=== PATIENT | female | born 1960 | race Caucasian/White ===

== ENCOUNTER 2019-08-11 02:52 | Emergency (ER) | payer MEDICARE, SELFPAY ==
[2019-08-11 02:48] VITALS: BP 107/63; PULSE 83; RESP 18; TEMP 36.6; O2SAT 100
--- NOTE | 2019-08-11 03:36 | ED.BACK ---
HPI - Back Pain/Injury General Chief Complaint: Back Pain/Injury Stated Complaint: back pain, h/a Time Seen by Provider: 08/11/19 03:17 History of Present Illness HPI Narrative: Patient presents via [facility] [place] [facility] [place]. She lives in [place] which is 5 miles away. She said she walked here from [place]. She says she walks a lot because she does not have a car. She has been homeless, but recently she has an apartment. 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 She has not had spine surgery. She rates her low back pain as 8 out of 10. She also has a migraine headache. It is bilateral and temporal. She rates it an 8 out of 10. She has blurry vision photophobia nausea.. She says she has a history of migraine headaches. This 1 started 3 hours ago. MD elicited complaint: back pain Pertinent past history: prior back pain Timing: constant Severity: moderate Related Data Allergies Allergy/AdvReac Type Severity Reaction Status Date / Time prednisone AdvReac Palpitation Verified 08/11/19 02:52 s Review of Systems Review of Systems: Narrative: CONSTITUTIONAL: Denies fever, chills, or sweats. EYES: Denies visual changes, redness, or discharge. ENT: Denies rhinorrhea, congestion, sore throat, or otalgia. CARDIOVASCULAR: Denies chest pain, palpitations, or edema. RESPIRATORY: Denies cough or dyspnea. GASTROINTESTINAL: Denies abdominal pain, nausea, vomiting, or diarrhea. GENITOURINARY: Denies dysuria or hematuria. SKIN: Denies rash or itching. MUSCULOSKELETAL: Denies joint pain, or myalgia. NEUROLOGIC: Denies numbness, or weakness. PSYCHIATRIC: Denies anxiety or depression. PMFSH Past Medical History Medical History Lumbar pain Migraine headache Smoking Surgical History Surgical History (Updated 08/11/19 @ 03:38 by Adelia Maria MD) History of hysterectomy Social History Social History (Updated 08/11/19 @ 03:38 by Adelia Maria MD) Smoking status: Current every day smoker Alcohol intake: current Substance use: never Gender identity (if verbalized by the patient): Female Exam Narrative: Exam Narrative: GENERAL: Well-appearing, well-nourished, and in no acute distress. Hair is oily, and unkempt. HEAD: Normocephalic, atraumatic. EYES: PERRLA and EOMI. ENT: Nares clear, no rhinorrhea or epistaxis. Mucous membranes moist. NECK: Supple. CHEST: Clear to auscultation. No respiratory distress. HEART: Regular rate and rhythm. No murmur heard. Normal peripheral pulses. ABDOMEN: Soft, nontender, nondistended, normal active bowel sounds. EXTREMITIES: No edema. SKIN: Warm, dry, no rash. NEURO: No focal deficits. Alert and oriented x3. PSYCH: Normal mood and affect. Course Reevaluation(s) Reevaluation #1: Went in to check on the patient. She was sleeping. I woke her up and asked her how she felt. She said not any better let me sit a little bit longer. Date: 08/11/19 Time: 05:16 Vital Signs Vital signs: Vital Signs Temperature 97.8 F 08/11/19 02:48 Pulse Rate 83 08/11/19 02:48 Respiratory Rate 18 08/11/19 02:48 Blood Pressure 107/63 08/11/19 02:48 Pulse Oximetry 100 08/11/19 02:48 Temperature 97.8 F 08/11/19 06:28 Pulse Rate 83 08/11/19 02:48 Respiratory Rate 18 08/11/19 02:48 Blood Pressure 107/63 08/11/19 02:48 Pulse Oximetry 100 08/11/19 02:48 MDM - Back Pain/Injury Medical Records Attestation: I reviewed the patient's medical records. Discharge Plan Discharge Clinical Impression: Chronic back pain Qualifiers: Back pain location: low back pain Back pain laterality: unspecified Sciatica presence: without sciatica Qualified Code(s): M54.5 - Low back pain Headache, migraine Qualifiers: Migraine type: unspecified Status migrainosus presence: without status migrainosus Intractability: not intractable Qualified Code(s): G43.909 - Migraine, unspecified, not intractable, without status migrainos
[2019-08-11] MEDS: KETOROLAC 15 MG/ML VIAL (*BKC) IV PUSH (03:52)
[2019-08-11] MEDS: SODIUM CHLORIDE 0.9% IV 1,000 ML 999 ML IV CONT (03:53)
[2019-08-11] MEDS: METOCLOPRAMIDE HCL INJ 10 MG/2 ML VIAL IV PUSH (03:53)
[2019-08-11 04:02] VITALS: BP 137/65; PULSE 67; RESP 16; O2SAT 99
[2019-08-11 06:28] VITALS: TEMP 36.6
[2019-08-11 06:43] VITALS: BP 121/58; PULSE 73; RESP 12; TEMP 36.4; O2SAT 97
== END 2019-08-11 06:45 | disposition home or self-care (01) ==
PROVIDERS: Emergency Provider Emergency Medicine
DX: M54.5 Low back pain (principal); G43.909 Migraine, unspecified, not intractable, without status migrainosus; F17.200 Nicotine dependence, unspecified, uncomplicated
CPT/HCPCS: 96361; 96374; 96375; 99284; J1200; J1885; J2765; J7030

== ENCOUNTER 2020-05-22 14:03 | Emergency (ER) | payer MEDICARE, SELFPAY ==
--- NOTE | 2020-05-22 14:13 | ED.SKABFB ---
HPI - Skin/Abscess/Foreign Bdy General Chief complaint: Skin/Abscess/Foreign Body Stated complaint: boil Time Seen by Provider: 05/22/20 14:25 Source: patient and RN notes reviewed Mode of arrival: ambulatory Limitations: no limitations History of Present Illness HPI narrative: 59-year-old female presents concern for abscess on her left was at left buttock. Reports she and her boyfriend drained the area with a sterilized needle, and pus came out. Reports pain has improved since then, however she still has a scab with redness. Reports her boyfriend had MRSA in the past, she has no history herself of boils, abscesses, MRSA. She denies any similar instances in the past. She denies fever, malaise, chills, sweats. Denies any current drainage from the area. MD complaint: abscess/boil Related Data Home Medications Medication Instructions Recorded Confirmed alprazolam 05/22/20 citalopram mg 05/22/20 dextroamphetamine-amphetamine 05/22/20 mirtazapine mg 05/22/20 Allergies Allergy/AdvReac Type Severity Reaction Status Date / Time prednisone AdvReac Palpitation Verified 08/11/19 02:52 s Review of Systems Review of Systems: Narrative: CONSTITUTIONAL: Denies malaise, chills, sweats, or fever. CARDIOVASCULAR: Denies chest pain, palpitations, or edema. RESPIRATORY: Denies cough or dyspnea. SKIN: Reports a boil in her left buttock MUSCULOSKELETAL: Denies myalgia. All systems reviewed & are unremarkable except as noted in HPI and below PMFSH Past Medical History Medical History Lumbar pain Migraine headache Smoking Surgical History Surgical History (Updated 08/11/19 @ 03:38 by Adelia Maria MD) History of hysterectomy Social History Social History (Updated 08/11/19 @ 03:38 by Adelia Maria MD) Smoking status: Current every day smoker Alcohol intake: current Substance use: never Gender identity (if verbalized by the patient): Female Comments At time of signature, agree with nursing past medical, surgical, social and family history. There is no relevant family history pertinent to the presenting complaint Exam Narrative: Exam Narrative: GENERAL: Well-appearing, well-nourished, and in no acute distress. HEAD: Normocephalic, atraumatic. EYES: PERRLA, conjunctivae clear, and EOMI. ENT: Mucous membranes moist. NECK: Supple. No lymphadenopathy CHEST: Clear to auscultation. No respiratory distress. HEART: Regular rate and rhythm. SKIN: Warm, dry. 2 cm area of erythema with central scab, not fluctuant, no induration, consistent with resolving abscess NEURO: Alert and oriented x3. PSYCH: Normal mood and affect Course Course Emergency Course: Patient is aware of diagnosis, understands and agrees to treatment plan. Anticipatory guidance given. Patient agrees to follow-up as directed and is aware of reasons to seek care at the emergency department. Portions of this record may have been created with voice recognition software Vital Signs Vital signs: Reviewed. MDM - Skin/Abscess/Foreign Bdy MDM Narrative Medical decision making narrative: Exam findings show no acute concerns or changes; patient is non-toxic appearing and is in no distress. Patient is appropriate for outpatient treatment and follow-up. Differential Diagnosis Differential diagnosis: Likely abscess of skin or subcutaneous tissue, urticaria, cellulitis and contact dermatitis Critical Care Time Critical Care Time Critical Care Time: No Discharge Plan Discharge Clinical Impression: Abscess Patient Disposition: Home, Self-Care Condition: Stable Instructions: Antibiotic Form, Abscess (ED) Additional Instructions: Apply warm moist heat to the area, continue to monitor. If redness does not improve within 24 hours or he worsens within 24 hours please fill the antibiotic and take as directed Please follow up with your Primary Care Doctor If your symptoms are worsening or not improving despite antibiotics. Take Mot
[2020-05-22 14:30] VITALS: BP 127/78; PULSE 100; RESP 16; TEMP 36; O2SAT 100
== END 2020-05-22 14:51 | disposition home or self-care (01) ==
PROVIDERS: Emergency Provider Nurse Practitioner
DX: L02.31 Cutaneous abscess of buttock (principal); F17.200 Nicotine dependence, unspecified, uncomplicated; Z90.711 Acquired absence of uterus with remaining cervical stump; F41.9 Anxiety disorder, unspecified; F90.9 Attention-deficit hyperactivity disorder, unspecified type
CPT/HCPCS: 99213; G0463

== ENCOUNTER 2020-11-16 13:32 | Emergency (ER) | payer MEDICARE, SELFPAY ==
[2020-11-16 13:45] VITALS: BP 104/65; PULSE 83; RESP 18; TEMP 36.3; O2SAT 100
--- NOTE | 2020-11-16 14:12 | ED.LOWEXIN ---
HPI - Extremity Injury (Lower) General Chief Complaint: Extremity Injury, Lower Stated Complaint: painful left leg History of Present Illness HPI Narrative: This is a 61-year-old female who presented to urgent care with complaints of pain to her left lower extremity. Patient denies any trauma to the legs she describes her pain as intermittent pain with occasional numbness that starts at the thigh and migrates to her lower feet. She notes that sometimes it feels as if she is getting a charley horse . She notes that she took Vicodin's with no relief last night. She notes that her pain wakes her up out of her sleep. She notes that the pain has occurred for approximately 1 month. Patient notes that occasionally it feels as if her knee is about to give him. She notes that she is experiencing pain at rest and while ambulating. Patient was reading the Internet and was concerned about a DVT she also notes that she has elevated her leg apply ice to the area with no relief. The patient denies SOB, CP, palpitation, extremity numbness, lightheadedness, dizziness, constipation, diarrhea, chills, no neurovascular deficiencies, pedal pulses present, Homans' sign is negative, capillary refill within normal limits, or fever. Related Data Home Medications Medication Instructions Recorded Confirmed alprazolam 05/22/20 citalopram mg 05/22/20 dextroamphetamine-amphetamine 05/22/20 mirtazapine mg 05/22/20 Allergies Allergy/AdvReac Type Severity Reaction Status Date / Time prednisone AdvReac Palpitation Verified 11/16/20 13:50 s Review of Systems Review of Systems: A 14 organ system Review of Systems was performed and pertinent positives included in the HPI, otherwise remaining ROS is negative. PMFSH Past Medical History Medical History Lumbar pain Migraine headache Smoking Surgical History Surgical History History of hysterectomy Social History Social History Smoking status: Current every day smoker Alcohol intake: current Substance use: never Gender identity (if verbalized by the patient): Female Exam Narrative: GENERAL: This is a well-nourished, well-developed patient, in no apparent distress. HEAD: normocephalic, atraumatic. EYES: PERRL. Sclera clear/white. Vision is grossly intact. EARS: External ears normal, auditory canals clear and without drainage, TMs normal without perforation. Hearing grossly intact. NOSE: External nose normal with no obvious nasal discharge, nares without redness, no rhinorrhea. THROAT: Mucous membranes moist, posterior pharynx clear. NECK: Neck supple, non-tender without lymphadenopathy, masses or thyromegaly. CARDIOVASCULAR: Regular rate and rhythm without murmurs, gallops, or rubs. RESPIRATORY: Clear to auscultation. Breath sounds equal bilaterally. No wheezes, rales, or rhonchi. GASTROINTESTINAL: Abdomen soft, non-tender, nondistended. Bowel sounds are active. No hepato-splenomegaly, or palpable masses. No guarding. SKIN: warm, intact with no suspicious lesions or rash, good texture and turgor. NEURO: awake, alert, and oriented to person, place and time. There were no obvious focal neurologic abnormalities. Steady gait EXTREMITIES: Normal range of motion. No edema. No calf tenderness. Negative Homans sign bilaterally. No edema or erythema's to the left lower extremities, pulses palpable, no neurovascular deficiencies capillary refill within normal limits, Homans' sign is negative BACK: Nontender without deformity or crepitance. No flank tenderness. Course Course Emergency Course: Patient will discharge home with Flexeril, ibuprofen and [place] Vital Signs Vital signs: Vital Signs Temperature 97.4 F L 11/16/20 13:45 Pulse Rate 83 11/16/20 13:45 Respiratory Rate 18 11/16/20 13:45 Blood Pressure 104/65 11/16/20 13:45 Pulse Oximetry 100 11/16/20
== END 2020-11-16 14:09 | disposition home or self-care (01) ==
PROVIDERS: Emergency Provider Nurse Practitioner
DX: S86.912A Strain of unspecified muscle(s) and tendon(s) at lower leg level, left leg, initial encounter (principal); F17.210 Nicotine dependence, cigarettes, uncomplicated; X58.XXXA Exposure to other specified factors, initial encounter
CPT/HCPCS: 99213; G0463

== ENCOUNTER 2021-02-28 18:49 | Emergency (ER) | payer MEDICARE, SELFPAY ==
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
[2021-02-28 19:01] VITALS: BP 149/84; PULSE 103; RESP 14; TEMP 36.7; O2SAT 99
[2021-02-28 23:31] VITALS: BP 142/65; PULSE 91; RESP 20; TEMP 36.8; O2SAT 99
[2021-03-01 02:33] VITALS: BP 142/76; PULSE 77; RESP 15; O2SAT 99
[2021-03-01 02:45] VITALS: BP 111/58; PULSE 80; RESP 14; RESP 15; O2SAT 98; O2SAT 99
[2021-03-01 04:23] LABS: Basophils Absolute Auto 0.1 K/mm3 (0.0-0.1); Basophils Percent Auto 0.7 % (0.2-1.2); Eosinophils Absolute Auto 0.4 K/mm3 (0-0.3); Eosinophils Percent Auto 4.7 % (0-4.4); Hemoglobin 12.6 g/dL (12.0-15.0); Immature Granulocyte Absolute 0.02 K/mm3 (0.00-0.031); Immature Granulocyte Percent A 0.2 % (0-0.5); Lymphocytes Absolute Auto 2.43 K/mm3 (0.9-3.2); Lymphocytes Percent Auto 27.6 % (18.3-44.2); Mean Corpuscular HGB Conc 33.2 g/dl (32-36); Mean Corpuscular Hemoglobin 32.4 pg (26-34); Mean Corpuscular Volume 97.7 fl (80-100); Mean Platelet Volume 9.6 fl (7.4-10.4); Monocytes Absolute Auto 0.7 K/mm3 (0.1-0.6); Monocytes Percent Auto 7.4 % (2.6-8.5); Neutrophils Absolute Auto 5.2 K/mm3 (1.3-6.7); Neutrophils Percent Auto 59.4 % (45.5-73.1); Platelet Count Result 303 k/mm3 (150-375); Red Blood Count 3.89 M/mm3 (4.2-5.4); Red Cell Distribution Width 14.2 % (11.5-14.5); White Blood Count 8.8 K/mm3 (4.5-10.0)
[2021-03-01 04:27] LABS: Add Urine Microscopic? YES; Appearance Urine Cloudy (Clear); Bacteria Urine Trace /hpf; Bilirubin Urine Negative (Negative); Calcium Oxalate Crystals Urine Many /hpf; Color Urine Yellow (Yellow); Glucose Urine UA Negative (Negative); Ketones Urine Negative (Negative); Leukocyte Esterase Ur 2+ LEU/UL (Negative); Mucus Urine Rare /lpf; Nitrate Urine Negative (Negative); Protein Urine Negative (Negative); Squamous Epithelial Cell Urine Rare /hpf (Few); WBC Urine >75 /hpf
[2021-03-01 04:29] LABS: Blood Urine Negative (Negative)
[2021-03-01 04:30] VITALS: BP 120/70; PULSE 88; RESP 19; O2SAT 99
[2021-03-01 04:35] LABS: Alanine Aminotransferase 21 U/L (4-35); Albumin Level 3.8 g/dL (3.5-5.1); Alkaline Phosphatase 79 U/L (38-126); Anion Gap 0 mmol/L (8-16); Aspartate Amino Transferase 27 U/L (14-36); Bilirubin,Total 0.3 mg/dL (0.2-1.3); Blood Urea Nitrogen 17 mg/dL (7-17); Carbon Dioxide 30 mmol/L (22-30); Chloride 106 mmol/L (98-107); Estimated CRCL calculation 83 ml/min; Estimated Glomerular Filt Rate > 60; Glucose 107 mg/dL (65-110); Potassium 3.4 mmol/L (3.4-5.0); Sodium 136 mmol/L (137-145)
[2021-03-01 04:38] LABS: Amphetamine Screen Urine Positive (Negative); Barbiturate Screen Urine Negative (Negative); Benzodiazepines Screen Urine Positive (Negative); Cannabinoid Screen Urine Positive (Negative); Cocaine Screen Urine Negative (Negative); Methadone Screen Urine Negative (Negative); Opiate Screen Urine Negative (Negative); Phencyclidine Screen Urine Negative (Negative)
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
[2021-03-01] MEDS: IBUPROFEN 400 MG TABLET 800 MG PO (05:46)
[2021-03-01 06:33] VITALS: BP 165/92; PULSE 96; RESP 16; O2SAT 98
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
[2021-03-01 07:48] VITALS: BP 167/80; PULSE 80; RESP 14; O2SAT 100
--- NOTE | 2021-03-01 08:22 | PCCCNOTE ---
Spoke with pt and provided list of homeless shelters
== END 2021-03-01 08:55 | disposition home or self-care (01) ==
PROVIDERS: Emergency Provider Emergency Medicine
DX: N39.0 Urinary tract infection, site not specified (principal); S00.83XA Contusion of other part of head, initial encounter; F17.200 Nicotine dependence, unspecified, uncomplicated; Y04.2XXA Assault by strike against or bumped into by another person, initial encounter; Z79.899 Other long term (current) drug therapy
CPT/HCPCS: 36415; 70450; 70486; 71260; 72125; 74177; 80053; 80307; 81001; 85025; 87077; 87086; 87186; 99284; A9270; Q9967

== ENCOUNTER 2021-05-31 16:43 | Emergency (ER) | payer MEDICARE, SELFPAY ==
[2021-05-31 16:58] VITALS: BP 139/75; PULSE 100; RESP 20; TEMP 37.1; O2SAT 99
--- NOTE | 2021-05-31 17:35 | ED.EXTPRO ---
HPI - Extremity Problem General Chief complaint: Extremity Problem,Nontraumatic Stated complaint: left leg pain for one year Time Seen by Provider: 05/31/21 17:08 History of Present Illness HPI Narrative: 61-year-old female presents to the emergency room with complaints of left leg pain for a year. Patient states the pain starts in her foot and radiates up into her goodman. Patient reports that she has been taking 800 mg of ibuprofen multiple times a day for over a year with moderate relief. Patient states leg pain is worse when ambulating or standing. Patient has significant smoking history. Patient states that she has been to multiple emergency room's, and urgent care clinics for evaluation. Patient is requesting an ultrasound to assess for peripheral vascular disease. Related Data Home Medications Medication Instructions Recorded Confirmed alprazolam 05/22/20 citalopram mg 05/22/20 dextroamphetamine-amphetamine 05/22/20 mirtazapine mg 05/22/20 Allergies Allergy/AdvReac Type Severity Reaction Status Date / Time prednisone AdvReac Palpitation Verified 05/31/21 17:06 s Review of Systems Review of Systems: CONSTITUTIONAL: Denies fever, chills, or sweats. EYES: Denies visual changes, redness, or discharge. ENT: Denies rhinorrhea, congestion, sore throat, or otalgia. CARDIOVASCULAR: Denies chest pain, palpitations, or edema. RESPIRATORY: Denies cough or dyspnea. GASTROINTESTINAL: Denies abdominal pain, nausea, vomiting, or diarrhea. GENITOURINARY: Denies dysuria or hematuria. SKIN: Denies rash or itching. MUSCULOSKELETAL: Per HPI: Left leg pain. NEUROLOGIC: Denies headache, numbness, dizziness, or weakness. PSYCHIATRIC: Denies anxiety or depression. PMFSH Past Medical History Medical History Lumbar pain Migraine headache Smoking Surgical History Surgical History History of hysterectomy Social History Social History Smoking status: Current every day smoker Alcohol intake: current Substance use: never Gender identity (if verbalized by the patient): Female Exam Narrative: GENERAL: Well-appearing, well-nourished, and in no acute distress. HEAD: Normocephalic, atraumatic. EYES: PERRLA and EOMI. ENT: Nares clear, no rhinorrhea or epistaxis. Mucous membranes moist. NECK: Supple. No adenopathy or masses. No carotid bruits or JVD CHEST: Clear to auscultation. No respiratory distress. No wheezes rales or rhonchi HEART: Regular rate and rhythm. No murmur heard. Normal peripheral pulses. ABDOMEN: Soft, nontender, nondistended, normal active bowel sounds. EXTREMITIES: Normal range of motion. No edema. LLE: Full range of motion of the ankle, tenderness to the left lateral calf, distal pulses present, skin is pink warm and dry. Normal inspection SKIN: Warm, dry, no rash. NEURO: No focal deficits. Alert and oriented x3. PSYCH: Normal mood and affect. Course Vital Signs Vital signs: Vital Signs Temperature 37.1 C 05/31/21 16:58 Pulse Rate 100 05/31/21 16:58 Respiratory Rate 20 05/31/21 16:58 Blood Pressure 139/75 05/31/21 16:58 Pulse Oximetry 99 05/31/21 16:58 Temperature 37.1 C 05/31/21 16:58 Pulse Rate 100 05/31/21 16:58 Respiratory Rate 20 05/31/21 16:58 Blood Pressure 139/75 05/31/21 16:58 Pulse Oximetry 99 05/31/21 16:58 MDM - Extremity (Nontraumatic) MDM Narrative Medical decision making narrative: 61-year-old female presented the emergency room with atraumatic left leg pain intermittently for a year. Patient stated that pain was worse when standing and walking around. CBC, CMP, D-dimer, cholesterol were all unremarkable. Patient's blood pressure is 139/75. Due to patient's history, will refer patient to PCP for further evaluation for possible peripheral vascular disease. Encourage patient to take daily aspirin. Medical Records A
[2021-05-31 17:52] LABS: Basophils Absolute Auto 0.1 K/mm3 (0.0-0.1); Basophils Percent Auto 0.8 % (0.2-1.2); Eosinophils Absolute Auto 0.3 K/mm3 (0-0.3); Eosinophils Percent Auto 3.8 % (0-4.4); Hemoglobin 12.5 g/dL (12.0-15.0); Immature Granulocyte Absolute 0.03 K/mm3 (0.00-0.031); Immature Granulocyte Percent A 0.3 % (0-0.5); Lymphocytes Absolute Auto 2.38 K/mm3 (0.9-3.2); Lymphocytes Percent Auto 26.6 % (18.3-44.2); Mean Corpuscular HGB Conc 33.8 g/dl (32-36); Mean Corpuscular Hemoglobin 32.4 pg (26-34); Mean Corpuscular Volume 95.9 fl (80-100); Mean Platelet Volume 9.6 fl (7.4-10.4); Monocytes Absolute Auto 0.5 K/mm3 (0.1-0.6); Neutrophils Absolute Auto 5.7 K/mm3 (1.3-6.7); Neutrophils Percent Auto 63.5 % (45.5-73.1); Platelet Count Result 335 k/mm3 (150-375); Red Blood Count 3.86 M/mm3 (4.2-5.4); Red Cell Distribution Width 14.1 % (11.5-14.5)
[2021-05-31] MEDS: SODIUM CHLORIDE 0.9% IV 500 ML IV CONT (17:56)
[2021-05-31 18:06] LABS: Alanine Aminotransferase 15 U/L (4-35); Albumin Level 4.1 g/dL (3.5-5.1); Alkaline Phosphatase 82 U/L (38-126); Anion Gap 2 mmol/L (8-16); Aspartate Amino Transferase 32 U/L (14-36); Bilirubin,Total 0.3 mg/dL (0.2-1.3); Blood Urea Nitrogen 22 mg/dL (7-17); Calcium 9.9 mg/dL (8.4-10.2); Carbon Dioxide 29 mmol/L (22-30); Chloride 106 mmol/L (98-107); Creatine Kinase 62 U/L (30-135); Estimated Glomerular Filt Rate > 60; Glucose 102 mg/dL (65-110); Potassium 3.7 mmol/L (3.4-5.0); Sodium 137 mmol/L (137-145)
[2021-05-31 18:25] LABS: D Dimer 0.33 ug/mL (<0.48)
[2021-05-31 18:41] LABS: Add Urine Microscopic? NO; Appearance Urine Clear (Clear); Bilirubin Urine Negative (Negative); Blood Urine Negative (Negative); Color Urine Yellow (Yellow); Glucose Urine UA Negative (Negative); Ketones Urine Negative (Negative); Leukocyte Esterase Ur Negative LEU/UL (Negative); Nitrate Urine Negative (Negative); Protein Urine Negative (Negative); Specific Grav Ur 1.011 (1.001-1.035); Urobilinogen Urine Negative mg/dL (<2.0)
[2021-05-31 19:01] LABS: Cholesterol 197 mg/dL (0-200)
== END 2021-05-31 19:40 | disposition home or self-care (01) ==
PROVIDERS: Emergency Provider Nurse Practitioner Family
DX: M79.662 Pain in left lower leg (principal); F17.200 Nicotine dependence, unspecified, uncomplicated; Z79.899 Other long term (current) drug therapy
CPT/HCPCS: 36415; 80053; 81003; 82465; 82550; 85025; 85380; 96360; 96372; 99283; J1100; J7040

== ENCOUNTER 2022-01-10 19:01 | Emergency (ER) | payer OTHER, SELFPAY ==
--- NOTE | ~2022-01-10 | XR_ITS ---
EXAMINATION: XR chest 2V DATE: 01/10/2022 19:57 INDICATION: Cough. TECHNIQUE: Frontal and lateral views of the chest were obtained. COMPARISON: Chest 2 views 05/03/2018 FINDINGS: There is mild scarring at the lung apices. No pleural effusion or pneumothorax. The heart s ize is normal. IMPRESSION: 1. Stable mild scarring at the lung apices. Reviewed, dictated and finalized at location A.
[2022-01-10 19:29] VITALS: BP 132/67; PULSE 127; RESP 18; TEMP 36.9; O2SAT 100
--- NOTE | 2022-01-10 19:40 | ED.URI ---
HPI - URI/Sore Throat General Chief Complaint: Upper Respiratory Infection Stated Complaint: uri Time Seen by Provider: 01/10/22 19:40 Source: patient and RN notes reviewed Mode of arrival: ambulatory Limitations: no limitations History of Present Illness HPI Narrative: 61-year-old female presents to the [facility] with multiple complaints of body aches, coughing, feeling feverish. Patient reports that she is homeless and has not taken anything. Currently smokes. Reports nonproductive cough. Denies chest pain or abdominal pain. Related Data Home Medications Medication Instructions Recorded Confirmed alprazolam 2 mg tablet 05/22/20 citalopram 40 mg tablet mg 05/22/20 dextroamphetamine-amphetamine 30 05/22/20 mg tablet mirtazapine 15 mg tablet mg 05/22/20 Allergies Allergy/AdvReac Type Severity Reaction Status Date / Time prednisone AdvReac Palpitation Verified 05/31/21 17:06 s Review of Systems Review of Systems: All systems reviewed & are unremarkable except as noted in HPI and below Constitutional: Constitutional: Reports as per HPI, Reports body ache(s), Reports chills, Reports fatigue and Reports fever(s) Eyes: Eyes: Reports no additional eye complaints ENT: Reports system reviewed and no additional complaints, except as documented Cardiovascular: Cardiovascular: Reports no additional cardiovascular complaints Respiratory: Respiratory: Reports as per HPI, Reports chest congestion and Reports cough Gastrointestinal: Gastrointestinal: Reports no additional gastrointestinal complaints Musculoskeletal: Musculoskeletal: Reports no additional musculoskeletal complaints Integumentary/Breasts: Skin/Breast: Reports system reviewed and no additional complaints, except as docu Neurologic: Reports system reviewed and no additional complaints, except as documented Psychiatric: Psychiatric: Reports no additional psychiatric complaints Allergic/Immunologic: Allergic/Immunologic: Reports no additional allergic/immunologic complaints [facility] Past Medical History Medical History Lumbar pain Migraine headache Smoking Surgical History Surgical History History of hysterectomy Social History Social History Smoking status: Current every day smoker Alcohol intake: current Substance use: never Gender identity (if verbalized by the patient): Female Comments At the time of my signature, I reviewed and agree with the nursing past medical, surgical, social, and family history. There is no relevant family history pertinent to the patient complaint. Exam Const: General: no acute distress, alert, ill appearing chronically and well nourished Nutritional Appearance: well nourished Orientation/consciousness: patient oriented x3 Limitations: no limitations HENMT: Head: normal to inspection Ears: external ears normal, TM's normal bilaterally and EAC's normal Face/Nose/Sinus: Normal external nose present and Normal nares present Face and sinus: normal facial exam Mouth: Yes Normal oral and palatal mucosa present, Yes lip normal and Yes moist mucous membranes Throat: posterior oropharynx normal and uvula midline Eyes: General: appearance normal, both eyes and all related structures Conjunctivae: conjunctivae normal Pupils: Equal, round and reactive pupils present Neck: Neck: normal visual inspection, no lymphadenopathy and no meningeal signs Chest: Chest palpation & inspection: normal inspection of the chest Resp: Effort & Inspection: normal respiratory effort and no use of accessory muscles Auscultation: clear to auscultation bilaterally, no crackles, no rales, no rhonchi, no wheezes and diminished lung sounds bilateral in the lower lung [place] Cardio: Rate: tachycardic Rhythm: regular rhythm Skin: General skin exam: normal color Rashes: no rashes Wounds: no wounds Neuro: Gen
== END 2022-01-10 19:53 | disposition home or self-care (01) ==
PROVIDERS: Emergency Provider Nurse Practitioner
DX: J20.9 Acute bronchitis, unspecified (principal); F17.200 Nicotine dependence, unspecified, uncomplicated; Z20.822 Contact with and (suspected) exposure to COVID-19
CPT/HCPCS: 71046; 87426; 87804; 99213; C9803; G0463

== ENCOUNTER 2023-07-12 12:04 | Emergency (ER) | payer MEDICARE, SELFPAY ==
[2023-07-12 12:23] VITALS: BP 105/57; PULSE 80; RESP 18; TEMP 36.3; O2SAT 100
--- NOTE | 2023-07-12 12:49 | ED.FEMALEGU ---
HPI - Female Genitourinary General Chief complaint: Urogenital-Female Stated complaint: UTI/Right Leg,Back Pain Time Seen by Provider: 07/12/23 12:52 Source: patient Mode of arrival: ambulatory Limitations: no limitations History of Present Illness HPI Narrative: 63-year-old female presented for complaint of concern for UTI. She states she has left lower abdominal pain and low back/hip pain x2 weeks. States she had a positive home uti test. Denies dysuria, hematuria, nausea, vomiting, abdominal pain, flank pain, constipation, diarrhea, fevers or chills. Pain also reported to left lower back and left leg, mostly just above the knee. States the leg will occasionally give out and cause her to fall. Reports hx low back disc problems. Taken one dose of ibuprofen without improvement and is requesting 'pain shot.' Denies pain radiating into the hips, numbness, tingling, weakness of the lower extremities, or change in gait, saddle paresthesia or loss of bowel or bladder. Related Data Home Medications Medication Instructions Recorded Confirmed alprazolam 2 mg tablet 2 mg PO DIRECTED 05/22/20 07/12/23 citalopram 40 mg tablet 40 mg PO DAILY 05/22/20 07/12/23 dextroamphetamine-amphetamine 30 30 mg PO DAILY 05/22/20 07/12/23 mg tablet mirtazapine 15 mg tablet 15 mg PO DIRECTED 05/22/20 07/12/23 Allergies Allergy/AdvReac Type Severity Reaction Status Date / Time prednisone AdvReac Palpitation Verified 07/12/23 12:30 s Review of Systems Review of Systems: CONSTITUTIONAL: Denies body aches, fever, chills CARDIOVASCULAR: Denies chest pain, palpitations, or edema. RESPIRATORY: Denies cough or dyspnea. GASTROINTESTINAL: Reports left lower abdominal pain, Denies nausea, vomiting, or diarrhea. SKIN: Denies rash, itching, or wounds. MUSCULOSKELETAL: reports left lower back pain, left leg pain; denies joint pain, or myalgia. NEUROLOGIC: Denies headache, numbness, tingling, or weakness. All systems reviewed & are unremarkable except as noted in HPI and below PMFSH Past Medical History Medical History Lumbar pain Migraine headache Smoking Surgical History Surgical History History of hysterectomy Social History Social History Smoking status: Current every day smoker Alcohol intake: current Substance use: never Gender identity (if verbalized by the patient): Female Comments At time of signature, I have reviewed and agree with nursing past medical, surgical, social and family history unless otherwise noted. Please see nursing chart for further information. There is no relevant family history pertinent to the presenting complaint Exam Narrative: GENERAL: Well-appearing CHEST: Speaks in full sentences. No respiratory distress. HEART: Regular rate and rhythm. Normal and equal peripheral pulses. ABD: soft, flat nontender, no guarding, no CVA tenderness EXTREMITIES: LLE has normal strength and sensation, normal range of motion with flexion/extension/rotation of hip. Reports tenderness just above the knee. No edema or ecchymosis, No vertebral point or paraspinal tenderness to L-spine. No open wounds, or obvious deformity; alignment normal, pulse palpable and equal bilaterally, skin warm, dry, pink. Capillary refill less than 3 seconds. SKIN: Warm, dry, no rash. NEURO: Alert and oriented x3. PSYCH: Normal mood and affect Course Course Emergency Course: Patient is aware of diagnosis, understands and agrees to treatment plan. Anticipatory guidance given. Patient agrees to follow-up as directed and is aware of reasons to seek care at the emergency department. Portions of this record may have been created with voice recognition software Level of Care: Express Care Visit Vital Signs Vital signs: Vital Signs Temperature 97.4 F L 07/12/23 12:23 Pulse Rate 80 07/12/23 12:23 Re
[2023-07-12] MEDS: KETOROLAC (*BKC) 60 MG/2 ML VIAL IM (13:12)
== END 2023-07-12 13:20 | disposition left against medical advice (07) ==
PROVIDERS: Emergency Provider Nurse Practitioner Family
DX: M79.652 Pain in left thigh (principal); R30.0 Dysuria; F17.200 Nicotine dependence, unspecified, uncomplicated
CPT/HCPCS: 96372; 99213; G0463; J1885